=== PATIENT | male | born 1950 | race Caucasian/White ===

== ENCOUNTER 2025-01-29 06:19 | Day surgery (SDC) | payer OTHER, SELFPAY | END 2025-01-29 11:36 | disposition home or self-care (01) | LOC: GI 06:19 | PROVIDERS: ATTENDING PHYSICIAN Internal Medicine Gastroenterology | DX: Z12.11 Encounter for screening for malignant neoplasm of colon (principal); R19.5 Other fecal abnormalities; K57.30 Diverticulosis of large intestine without perforation or abscess without bleeding; K64.8 Other hemorrhoids | CPT/HCPCS: G0121 ==